=== PATIENT | female | born 1985 | race Caucasian/White ===

== ENCOUNTER 2019-06-18 18:30 | Emergency (ER) | payer OTHER ==
[2019-06-18 19:03] VITALS: BP 125/72; PULSE 83; TEMP 98.7; BMI 31.6
[2019-06-18] MEDS ORDERED: ALBUTEROL SO4 0.083% IH SOL 2.5 MG/3 ML VIAL.NEB. NEB ONE ×2 (19:06→19:08)
--- NOTE | 2019-06-18 19:13 | PDOC ---
History of Present Illness - General Chief Complaint: Respiratory Stated Complaint: 9 WEEKS /PERSISTANT COUGH Time Seen by Provider: 06/18/19 19:03 History Source: Patient Exam Limitations: No Limitations - History of Present Illness Initial Comments: 06/18/19 19:08 Patient is a 34-year-old female who presents to the ED with complaint of incessant dry cough for the last 6 days. She states the cough has been keeping her up at night. She had one episode of posttussive emesis. She denies any fevers or chest pain. She denies any shortness of breath. Of note: The patient is 9 weeks and states she has been unable to take anything secondary to the . She denies any past medical history or allergies to medications. Past History - Past Medical History Allergies/Adverse Reactions: Allergies Allergy/AdvReac Type Severity Reaction Status Date / Time No Known Allergies Allergy Verified 06/18/19 18:56 Home Medications: Ambulatory Orders Vitamins ([facility]) - 05/31/14 Ibuprofen [Motrin -] 600 mg PO TID PRN #90 tablet 06/02/14 Albuterol Sulfate Inhaler - [Ventolin HFA Inhaler -] 1 - 2 inh PO QID #1 inhaler 06/18/19 Asthma: No Cancer: No Cardiac Disorders: No COPD: No Diabetes: No HTN: No Seizures: No Thyroid Disease: No - Psycho Social/Smoking Cessation Hx Smoking History: Never smoked Have you smoked in the past 12 months: Yes Number of Cigarettes Smoked Daily: 5 If you are a former smoker, when did you quit?: 9 MONTHS Hx Alcohol Use: No Drug/Substance Use Hx: No Hx Substance Use Treatment: No Review of Systems - Review of Systems Comments:: 06/18/19 19:08 - Review of Systems Able to Perform ROS?: Yes Constitutional: No: Fever, Chills, Loss of Appetite, Night Sweats, Weakness HEENTM: No: Eye Pain, Vision changes, Ear Pain, Throat Pain, Throat Swelling, Mouth Pain, Difficulty Swallowing Respiratory: No: Shortness of Breath, Wheezing, Sputum Production, + dry cough Cardiac (ROS): No: Chest Pain, Chest Tightness, Palpitations, Irregular Heart Beat, Edema ABD/GI: No: Nausea, Vomiting, Abdominal Pain, Diarrhea : No Dysuria, No Hematuria, No Frequency, No Urgency Musculoskeletal: No: Muscle Pain, Back Pain, Joint Pain, Muscle Weakness, Neck Pain Integumentary: No: Lesions, Rash Neurological: No: Headache, Numbness, Tingling, Weakness, Speech Difficulties *Physical Exam - Vital Signs Last Vital Signs Temp Pulse Resp BP Pulse Ox 98.7 F 83 22 H 125/72 99 06/18/19 18:56 06/18/19 18:56 06/18/19 18:56 06/18/19 18:56 06/18/19 18:56 - Physical Exam 06/18/19 19:09 - Physical Exam General Appearance: Nourished, Appropriately Dressed, No Distress HEENT: EOMI, Normal Voice, No Pharyngeal Erythema, No Muffled/Hoarse voice, No Tonsillar Exudate, No Tonsillar Erythema, No Nasal Congestion, No Rhinorrhea, Hearing Grossly Normal, TM's obstructed by impacted cerumen Neck: Supple, No Lymphadenopathy (R), No Lymphadenopathy (L), No Rigidity, No Decreased range of motion Respiratory/Chest: Lungs Clear, Normal Breath Sounds. No Respiratory Distress, No Accessory Muscle Use; Good air entry bilaterally. No adventitious lung sounds. Dry incessant cough appreciated. Cardiovascular: Regular Rhythm, Regular Rate, S1, S2 Gastrointestinal/Abdominal: Normal Bowel Sounds, Soft. Non-tender, No Guarding , No Rebound, No Rigidity Musculoskeletal: Normal Inspection. No Decreased Range of Motion Extremity: Normal Capillary Refill, Normal Inspection Integumentary: Normal Color, Dry. 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 Of note: She is 9 weeks gestation, she denies any abdominal pain or vaginal bleeding. Plan: -Since the patient is , Tessalon Perles is not indicated. -It is unlikely that she has a pneumonia being that she has no adventitious lung sounds and has not had fever or sputum production. -Albuterol nebulizer treatment given to the patient in the ED -I have made the patient aware that we will send an albuterol MDI inhaler to her pharmacy. This will help with her cough. She should follow-up with her OB/ [facility] APPR[employer]ICE for further evaluation and treatment as well as her primary care provider. She understands and agrees with this treatment and plan and she is stable for discharge. 06/18/19 19:24 The patient has gotten some relief from the nebulizer treatment in the ED. Discharge - Discharge Information Problems reviewed: Yes Clinical Impression/Diagnosis: Bronchitis Condition: Stable Disposition: HOME - Additional Discharge Information Prescriptions: Albuterol Sulfate Inhaler - [Ventolin HFA Inhaler -] 1 - 2 inh PO QID #1 inhaler - Follow up/Referral Referrals: Lisa Diallo MD [Primary Care Provider] - - Patient Discharge Instructions Patient Printed Discharge Instructions: DI for Acute Bronchitis Additional Instructions: Get plenty of rest and drink plenty of fluids. Use the albuterol inhaler as needed for severe cough. Follow-up with your primary doctor and your [employer] within 2 to 3 days for repeat evaluation. - Post Discharge Activity Work/Back to School Note: Back to Work
== END 2019-06-18 19:29 | disposition home or self-care (01) ==
LOC: JERFT 18:30
PROC: 3E0F7GC Introduction of Other Therapeutic Substance into Respiratory Tract, Via Natural or Artificial Opening (ICD-10-PCS; principal; 2019-06-18)
DX: O99.89 Other specified diseases and conditions complicating pregnancy, childbirth and the puerperium (principal); O99.511 Diseases of the respiratory system complicating pregnancy, first trimester; J40 Bronchitis, not specified as acute or chronic; Z3A.09 9 weeks gestation of pregnancy
CPT/HCPCS: 99281-25

== ENCOUNTER 2021-07-20 19:00 | Emergency (ER) | payer OTHER ==
[2021-07-20 19:11] VITALS: BMI 26.6
[2021-07-20] MEDS ORDERED: KETOROLAC TROMETHAMINE 30 MG/1 ML VIAL IVPUSH ONE (21:22)
[2021-07-20] MEDS ORDERED: KETOROLAC TROMETHAMINE 30 MG/1 ML VIAL ONE (21:29)
[2021-07-20 21:51] LABS: BASO % 0.9 % (0-2.0); EOS % 3.5 % (0-4.5); HEMATOCRIT 37.1 % (32.4-45.2); HEMOGLOBIN 12.8 GM/dL (10.7-15.3); LYMPH % 46.6 % (8-40); MCH 28.1 pg (25.7-33.7); MCHC 34.6 g/dl (32.0-36.0); MEAN CELL VOLUME 81.3 fl (80-96); MEAN PLT VOLUME 8.5 fl (7.5-11.1); MONO % 6.9 % (3.8-10.2); NEUT % 42.1 % (42.8-82.8); PLATELET COUNT 315 10^3/uL (134-434); RBC 4.57 M/mm3 (3.60-5.2); RDW 13.9 % (11.6-15.6); WHITE BLOOD COUNT 6.2 K/mm3 (4.0-10.0)
[2021-07-20 22:02] LABS: CALCIUM 8.9 mg/dL (8.5-10.1)
[2021-07-20 22:03] LABS: ALBUMIN 3.6 g/dl (3.4-5.0); BLOOD UREA NITROGEN 19.8 mg/dL (7-18)
[2021-07-20 22:06] LABS: CREATININE 0.7 mg/dL (0.55-1.3)
[2021-07-20 22:07] LABS: TOT PROT 7.6 g/dl (6.4-8.2)
[2021-07-20 22:08] LABS: BILIRUBIN,TOTAL 0.4 mg/dL (0.2-1)
[2021-07-20] MEDS ORDERED: CEPHALEXIN MONOHYDRATE 500 MG CAPSULE (UD) PO ONE (23:59)
[2021-07-21 00:35] VITALS: BP 117/80; PULSE 87; TEMP 98.2
== END 2021-07-21 01:12 | disposition home or self-care (01) ==
LOC: JERFT 19:00
PROC: 3E033GC Introduction of Other Therapeutic Substance into Peripheral Vein, Percutaneous Approach (ICD-10-PCS; principal; 2021-07-20)
DX: L03.317 Cellulitis of buttock (principal)
CPT/HCPCS: 36415; 72193-TC; 80053; 84703; 85025; 99285-25; Q9967